=== PATIENT | male | born 1965 | race Two or more races ===

== ENCOUNTER 2024-07-31 01:56 | Emergency (ER) | payer OTHER, MEDICAID ==
[2024-07-31 02:16] LABS: #Basophils 0.03 10x3/uL (0.0-0.2); #Eosinophils 0.15 10x3/uL (0.0-0.5); #Monocytes 0.58 10x3/uL (0.0-1.1); #Neutrophils 2.66 10x3/uL (1.5-8.4); %Basophils 0.5 % (0.0-2.0); %Eosinophils 2.5 % (0.0-6.0); %Lymphocytes 42.8 % (18.0-47.0); %Monocytes 9.7 % (0.0-10.0); %Neutrophils 44.2 % (40.0-75.0); Hematocrit 32.9 % (38.8-50.0); Hemoglobin 10.7 g/dL (13.5-17.5); Mean Corpuscular HGB CONC 32.5 g/dL (32.0-36.0); Mean Corpuscular Hemoglobin 30.7 pg (27.0-33.0); Mean Corpuscular Volume 94.3 fL (81.2-95.1); Mean Platelet Volume 9.1 fL (7.4-10.4); Platelet Count 217 10x3/uL (150-450); RBC Distribution Width 12.8 % (11.5-14.5); Red Blood Cell (RBC) Count 3.49 10x6/uL (4.32-5.72)
[2024-07-31 02:31] LABS: ALT (SGPT) 31 U/L (8-55); AST (SGOT) 23 U/L (5-34); Alcohol Less than 10.0 mg/dL (Less than 10); Alkaline Phosphatase 86 U/L (40-110); Anion Gap 12 mmol/L (10-20); BUN (Urea Nitrogen) 18 mg/dL (8.4-25.7); Bilirubin, Total 0.2 mg/dL (0.2-1.2); Calc. Creatinine Clearance 0 mL/min (70-130); Calcium 9.3 mg/dL (7.8-10.44); Carbon Dioxide 25 mmol/L (22-29); Chloride 106 mmol/L (98-107); Estimated GFR 64; Globulin 3.1 g/dL (2.4-3.5); Glucose 322 mg/dL (70-105); Potassium 4.6 mmol/L (3.5-5.1); Protein, Total 6.1 g/dL (6.0-8.3); Sodium 138 mmol/L (136-145)
== END 2024-07-31 03:43 | disposition home or self-care (01) ==
LOC: CSHERS 01:56
DX: E11.65 Type 2 diabetes mellitus with hyperglycemia (principal); F10.20 Alcohol dependence, uncomplicated; F19.10 Other psychoactive substance abuse, uncomplicated; I10 Essential (primary) hypertension; F03.90 Unspecified dementia, unspecified severity, without behavioral disturbance, psychotic disturbance, mood disturbance, and anxiety; Y90.0 Blood alcohol level of less than 20 mg/100 ml; Z79.84 Long term (current) use of oral hypoglycemic drugs; Z79.899 Other long term (current) drug therapy
CPT/HCPCS: 36416; 70450; 80053; 80307; 85025; 93005; 96360

== ENCOUNTER 2024-08-18 09:38 | Inpatient (IN) | payer OTHER, MEDICAID ==
[2024-08-18] MEDS ORDERED: Lorazepam 2 MG/ML VIAL ONE (10:06)
[2024-08-18 10:10] LABS: #Basophils 0.06 10x3/uL (0.0-0.2); #Neutrophils 5.56 10x3/uL (1.5-8.4); %Basophils 0.7 % (0.0-2.0); %Eosinophils 4.5 % (0.0-6.0); %Lymphocytes 21.9 % (18.0-47.0); %Monocytes 10.1 % (0.0-10.0); %Neutrophils 62.1 % (40.0-75.0); Hematocrit 35.8 % (38.8-50.0); Mean Corpuscular HGB CONC 33.5 g/dL (32.0-36.0); Mean Corpuscular Hemoglobin 31.2 pg (27.0-33.0); Mean Platelet Volume 9.9 fL (7.4-10.4); Platelet Count 230 10x3/uL (150-450); RBC Distribution Width 13.5 % (11.5-14.5); Red Blood Cell (RBC) Count 3.85 10x6/uL (4.32-5.72); White Blood Cell (WBC) Count 8.94 10x3/uL (3.5-10.5)
[2024-08-18 10:14] LABS: Bilirubin Neg (Negative); Blood, Urine Negative (Negative); Clarity Clear (Clear); Glucose, Urine (Dipstick) Normal (Negative); Ketone, Urine Negative (Negative); Leukocyte Negative (Negative); Nitrite Negative (Negative); Protein, Urine (Dipstick) 100 mg/dl (Neg-Trace); Specific Gravity, Urine 1.005 (1.005-1.030); Urobilinogen Normal mg/dL (Less than 2)
[2024-08-18 10:23] LABS: Amphetamine Not Detected (NotDetected); Barbiturates Screen Not Detected (NotDetected); Benzodiazepine Screen Not Detected (NotDetected); Cocaine Metabolite Screen Not Detected (NotDetected); Methadone Not Detected (NotDetected); Methamphetamine Not Detected (NotDetected); Opiate Screen Not Detected (NotDetected); Oxycodone Screen Not Detected (NotDetected); Phencyclidine (PCP) Not Detected (NotDetected); THC/Cannabinoid Screen Not Detected (NotDetected); Tricyclic Screen Detected (NotDetected)
[2024-08-18 10:26] LABS: Bacteria/HPF Rare-Few HPF (None Seen); CAUTI Indications for Culture Pelvic or flank pain; RBC/HPF None Seen HPF (0-3); WBC/HPF None Seen HPF (0-3)
[2024-08-18 10:27] LABS: Urine Culture Reflex No No
[2024-08-18 10:30] LABS: Acetaminophen Less than 10 mcg/mL (Less than 10); Alcohol Less than 10.0 mg/dL (Less than 10); Salicylate Less than 8.0 mg/dL (Less than 8.0)
[2024-08-18 10:31] LABS: ALT (SGPT) 13 U/L (Less than 45); AST (SGOT) 19 U/L (11-34); Albumin 3.5 g/dL (3.1-4.5); Alkaline Phosphatase 90 U/L (40-110); Anion Gap 12 mmol/L (10-20); BUN (Urea Nitrogen) 24 mg/dL (8.4-25.7); Bilirubin, Total 0.3 mg/dL (0.3-1.2); Calc. Creatinine Clearance 0 mL/min (70-130); Calcium 9.8 mg/dL (7.8-10.44); Carbon Dioxide 22 mmol/L (22-29); Chloride 110 mmol/L (98-107); Estimated GFR 78; Globulin 3.8 g/dL (2.4-3.5); Glucose 143 mg/dL (70-105); Potassium 5.1 mmol/L (3.5-5.1); Protein, Total 7.3 g/dL (6.0-8.3); Sodium 139 mmol/L (136-145)
[2024-08-18] MEDS ORDERED: QUEtiapine 25 MG TAB ONE (10:40)
[2024-08-18] MEDS ORDERED: Ondansetron ODT 4 MG TAB PO PRN (12:03)
[2024-08-18] MEDS ORDERED: Acetaminophen 325 MG TAB PO PRN (12:03)
[2024-08-18] MEDS ORDERED: Dextrose 5% in Water 1,000 ML IV PRN (12:03)
[2024-08-18] MEDS ORDERED: Glucagon 1 MG/ML KIT IM PRN (12:03)
[2024-08-18] MEDS ORDERED: Dextrose 50% Abboject 50 ML SYRINGE SLOW IVP PRN (12:03)
[2024-08-18] MEDS ORDERED: Haloperidol Lactate 5 MG/ML VIAL ONE (13:30)
[2024-08-18] MEDS: Haloperidol Lactate 5 MG/ML VIAL SLOW IVP SCH ×2 (13:50→15:32)
[2024-08-18] MEDS ORDERED: Lorazepam 2 MG/ML VIAL SLOW IVP SCH (15:30)
[2024-08-18] MEDS: Sterile Water 10 ML VIAL FS SCH ×2 (16:14→18:53)
[2024-08-18] MEDS: OLANZapine 10 MG VIAL IM SCH ×2 (16:14→18:53)
[2024-08-18 17:02] LABS: Hemoglobin A1c Greater than 14.0 % (4.0-6.0)
[2024-08-18] MEDS: Lorazepam 2 MG/ML VIAL SLOW IVP SCH (18:47)
[2024-08-18] MEDS: Multivitamins, Adult 10 ML, Folic Acid 1 MG, Thiamine HCl 100 MG, Admixture Fee 1 EACH ... IV SCH (19:28)
[2024-08-18 20:02] LABS: Anion Gap 13 mmol/L (10-20); BUN (Urea Nitrogen) 23 mg/dL (8.4-25.7); CK (CPK) 256 U/L (30-200); Calc. Creatinine Clearance 73 mL/min (70-130); Calcium 9.7 mg/dL (7.8-10.44); Carbon Dioxide 20 mmol/L (22-29); Chloride 112 mmol/L (98-107); Estimated GFR 74; Glucose 114 mg/dL (70-105); Magnesium 1.8 mg/dL (1.6-2.6); Potassium 5.2 mmol/L (3.5-5.1); Sodium 140 mmol/L (136-145)
[2024-08-18] MEDS: Pregabalin 50 MG CAP PO SCH (20:06)
[2024-08-18] MEDS: QUEtiapine 100 MG TAB PO SCH (20:06)
[2024-08-18] MEDS: busPIRone HCl 15 MG TAB PO SCH (20:07)
[2024-08-18] MEDS: Atorvastatin Calcium 40 MG TAB PO SCH (20:08)
[2024-08-18] MEDS: Lisinopril 20 MG TAB PO SCH (20:08)
[2024-08-18] MEDS: Magnesium 2 GM/50 ML(in water) 2 GM in Premix 1 BAG IVPB SCH (21:08)
[2024-08-18] MEDS: Tamsulosin HCl 0.4 MG CAP PO SCH (21:09)
[2024-08-19] MEDS: Insulin Lispro 100 UNIT/ML 10 ML VIAL SC PRN (00:24)
[2024-08-19] MEDS: Lactated Ringer's 1,000 ML IV SCH (03:36)
[2024-08-19 03:42] LABS: #Basophils 0.04 10x3/uL (0.0-0.2); #Eosinophils 0.32 10x3/uL (0.0-0.5); #Monocytes 0.87 10x3/uL (0.0-1.1); %Basophils 0.7 % (0.0-2.0); %Eosinophils 5.5 % (0.0-6.0); %Lymphocytes 31.4 % (18.0-47.0); %Monocytes 15.1 % (0.0-10.0); %Neutrophils 46.8 % (40.0-75.0); Hematocrit 32.1 % (38.8-50.0); Hemoglobin 10.6 g/dL (13.5-17.5); Mean Corpuscular Hemoglobin 30.5 pg (27.0-33.0); Mean Corpuscular Volume 92.2 fL (81.2-95.1); Mean Platelet Volume 9.9 fL (7.4-10.4); Platelet Count 195 10x3/uL (150-450); RBC Distribution Width 13.4 % (11.5-14.5); Red Blood Cell (RBC) Count 3.48 10x6/uL (4.32-5.72); White Blood Cell (WBC) Count 5.77 10x3/uL (3.5-10.5)
[2024-08-19 04:03] LABS: Anion Gap 11 mmol/L (10-20); BUN (Urea Nitrogen) 21 mg/dL (8.4-25.7); CK (CPK) 257 U/L (30-200); Calc. Creatinine Clearance 79 mL/min (70-130); Calcium 9.1 mg/dL (7.8-10.44); Carbon Dioxide 20 mmol/L (22-29); Chloride 112 mmol/L (98-107); Estimated GFR 81; Glucose 200 mg/dL (70-105); Magnesium 2.2 mg/dL (1.6-2.6); Potassium 4.4 mmol/L (3.5-5.1); Sodium 139 mmol/L (136-145)
[2024-08-19 06:17] VITALS: BMI 22.6
[2024-08-19 08:42] VITALS: BP 136/74; TEMP 98.1
[2024-08-19] MEDS: Lantus 1000 UNITS/10 ML VIAL SC SCH (08:44)
[2024-08-19] MEDS: Lisinopril 10 MG TAB PO SCH (08:45)
[2024-08-19] MEDS: Folic Acid 1 MG TAB PO SCH (08:45)
[2024-08-19] MEDS: Divalproex Sodium DR 500 MG TAB PO SCH (08:45)
[2024-08-19] MEDS: FLUoxetine HCl 20 MG CAP PO SCH (08:45)
[2024-08-19] MEDS: Multivitamin W/ Minerals 1 TAB PO SCH (08:45)
[2024-08-19] MEDS: Metoprolol Succinate XL 25 MG ER.TAB PO SCH (08:45)
[2024-08-19] MEDS: busPIRone HCl 5 MG TAB PO SCH (08:45)
[2024-08-19] MEDS: Finasteride 5 MG TAB PO SCH (08:45)
[2024-08-19] MEDS: Enoxaparin 40 MG (0.4 mL) SYRINGE SC SCH (08:46)
[2024-08-19] MEDS: Thiamine HCl 200 MG/2 ML VIAL SLOW IVP SCH (08:46)
[2024-08-19] MEDS: QUEtiapine 100 MG TAB PO SCH (08:47)
[2024-08-19] MEDS ORDERED: Amlodipine 10 MG TAB PO SCH (09:00)
== END 2024-08-19 16:13 | DRG 638 ==
LOC: CSHERS 09:38 → CSHERHOLD 11:38 → CSHTELE 15:02
PROVIDERS: ADMIT Family Medicine; ATTEND Family Medicine
DX: E11.649 Type 2 diabetes mellitus with hypoglycemia without coma (principal); F11.20 Opioid dependence, uncomplicated; F14.20 Cocaine dependence, uncomplicated; R44.3 Hallucinations, unspecified; F10.20 Alcohol dependence, uncomplicated; F31.9 Bipolar disorder, unspecified; F17.210 Nicotine dependence, cigarettes, uncomplicated; G40.909 Epilepsy, unspecified, not intractable, without status epilepticus; Z91.012 Allergy to eggs; Z91.018 Allergy to other foods
CPT/HCPCS: 36415; 36416; 70450; 80048; 80053; 80164; 80306; 80307; 81001; 82140; 82550; 83036; 83735; 84100; 84146; 84443; 85025; 93005; 94760; 96374; 96375; J1630; J1650; J1815; J2060; J3411; J3475; J7042; J7120